=== PATIENT | female | born 1990 | race Caucasian/White ===

== ENCOUNTER 2020-09-17 12:49 | Emergency (ER) | payer OTHER, SELFPAY ==
--- NOTE | ~2020-09-17 | XR_ITS ---
EXAMINATION: XR CHEST CLINICAL INFORMATION: Cough, SOB COMPARISON: None TECHNIQUE: Frontal view of the chest was obtained. FINDINGS: No significant abnormality is noted involving the heart, lungs, mediastinum, bony thorax or soft tissues. XR/XR chest 1V IMPRESSION: Unremarkable unremarkable chest exam examination.
[2020-09-17 12:52] VITALS: BP 113/77; PULSE 112; RESP 24; TEMP 37; O2SAT 98; BMI 37.6
[2020-09-17 13:10] VITALS: BP 110/73; PULSE 107; RESP 17; TEMP 37.1; O2SAT 96
[2020-09-17] MEDS: 0.9 % Sodium Chloride 1,000 ML 999 ML IV (13:21)
[2020-09-17] MEDS: Magnesium Sulfate/H2O 2 GM/50 ML PIGGYBACK IV (13:22)
[2020-09-17] MEDS: methylPREDNISolone Sod Succ 125 MG/2 ML VIAL IVPUSH (13:22)
--- NOTE | 2020-09-17 13:24 | ED.ASTHMA ---
HPI - Asthma General Chief Complaint: Asthma <Linda Randle NP - Last Filed: 09/17/20 15:01> Stated Complaint: DIFF BREATHING ASTHMA <TORI Parsons Last Filed: 09/17/20 15:01> Time Seen by Provider: 09/17/20 13:07 <TORI Parsons Last Filed: 09/17/20 15:01> Source: patient <OTRI Parsons Last Filed: 09/17/20 15:01> Mode of arrival: ambulatory <TORI Parsons Last Filed: 09/17/20 15:01> Limitations: no limitations <TORI Parsons Last Filed: 09/17/20 15:01> History of Present Illness HPI Narrative: 30 yo female with past medical history of asthma here with cough, wheezing, shortness of breath x2 days. Patient uses Advair, albuterol and nebulizer machine as needed. Her asthma is triggered by allergies. She has had some sneezing and a clear runny nose. No fevers, chills or productive cough. No leg pain or swelling or chest pain. No OCP use. Fully vaccinated with [employer] J COVID vaccine 1 month ago. History of several hospitalizations with 1 ICU admit. No intubation history <Linda Randle NP - Last Filed: 09/17/20 15:01> Related Data Home Medications: Previous Rx's Medication Instructions Recorded albuterol sulfate 2.5 mg INHALATION Q4-6H PRN #15 ml 09/17/20 benzonatate [Tessalon Perles] 100 mg PO BID PRN #10 cap 09/17/20 prednisone 40 mg PO DAILY #8 tab 09/17/20 <TORI Parsons Last Filed: 09/17/20 15:01> Allergies/Adverse Reactions: Allergies Allergy/AdvReac Type Severity Reaction Status Date / Time No Known Allergies Allergy Verified 09/17/20 12:52 [No Known Allergies*] <TORI Parsons Last Filed: 09/17/20 15:01> Review of Systems Review of Systems: Yes all other systems are reviewed and are negative <TORI Parsons Last Filed: 09/17/20 15:01> Constitutional: Constitutional: Reports no additional constitutional complaints, Denies body ache(s), Denies chills, Denies fever(s), Denies headache(s) and Denies weakness <Linda Randle NP - Last Filed: 09/17/20 15:01> Eyes: Eyes: Reports no additional eye complaints and Denies change in vision <Linda Randle NP - Last Filed: 09/17/20 15:01> ENT: Reports system reviewed and no additional complaints, except as documented, Denies dizziness, Denies headache(s), Denies nasal congestion, Denies nasal discharge and Denies neck pain <Linda Randle NP - Last Filed: 09/17/20 15:01> Cardiovascular: Cardiovascular: Reports no additional cardiovascular complaints, Denies chest pain, Denies leg edema and Reports dyspnea <Linda Randle NP - Last Filed: 09/17/20 15:01> Respiratory: Respiratory: Reports no additional respiratory complaints, Reports cough and Reports dyspnea <Linda Randle NP - Last Filed: 09/17/20 15:01> Gastrointestinal: Gastrointestinal: Reports no additional gastrointestinal complaints, Denies abdominal pain, Denies diarrhea, Denies nausea and Denies vomiting <Linda Randle NP - Last Filed: 09/17/20 15:01> Genitourinary: Genitourinary: Reports no additional female genitourinary complaints and Denies urinary incontinence <Linda Randle NP - Last Filed: 09/17/20 15:01> Musculoskeletal: Musculoskeletal: Reports no additional musculoskeletal complaints, Denies back pain, Denies arthralgias, Denies joint swelling, Denies neck pain, Denies numbness and Denies tingling <Linda Randle NP - Last Filed: 09/17/20 15:01> Integumentary/Breasts: Skin/Breast: Reports system reviewed and no additional complaints, except as docu and Denies rash <Linda Randle NP - Last Filed: 09/17/20 15:01> Neurologic: Reports system reviewed and no additional complaints, except as documented, Denies Abnormal speech present, Denies dizziness, Denies headache(s), Denies numbness, Denies tingling and Denies weakness <Linda Randle NP - Last Filed: 09/17/20 15:01> [facility] Past Medical History Attestation statement: The following information was validated with the patient. <Linda Randle NP - Last Filed: 09/17/20 15:01> Source: old records reviewed and nursing notes reviewed <Linda Randle NP - Last Filed: 09/17/20 15:01> Medical History: Medical History Asthma Fibromyalgia Thyroid activity decreased <Linda Randle NP - Last Filed: 09/17/20 15:01> Social History Social History: Social History Alcohol intake: never Use of substances other than those prescribed or required for medical reasons: No Advance Directives: No Advance Directives Information Provided: No Patient : No <Linda Randle NP - Last Filed: 09/17/20 15:01> Physical Exam Vital Signs: Vital Signs: Last Vital Signs Temp 98.7 F 09/17/20 13:10 Pulse 97 09/17/20 14:21 Resp 15 09/17/20 14:21 BP 134/76 09/17/20 14:21 Pulse Ox 98 09/17/20 14:21 Body Mass Index 37.6 <Linda Randle NP - Last Filed: 09/17/20 15:01> Vital Signs: Last Vital Signs Temp 98.7 F 09/17/20 13:10 Pulse 97 09/17/20 14:21 Resp 15 09/17/20 14:21 BP 134/76 09/17/20 14:21 Pulse Ox 98 09/17/20 14:21 Body Mass Index 37.6 <Jeet Méndez MD - Last Filed: 10/10/20 00:06> Const: General: cooperative, healthy appearing, comfortable and no acute distress <Linda Randle NP - Last Filed: 09/17/20 15:01> Orientation/consciousness: patient oriented x3 <Linda Randle NP - Last Filed: 09/17/20 15:01> Limitations: no limitations <Linda Randle NP - Last Filed: 09/17/20 15:01> HENMT: Head: Yes normal to inspection <Linda Randle NP - Last Filed: 09/17/20 15:01> Ears: hearing grossly normal bilaterally <Linda Randle NP - Last Filed: 09/17/20 15:01> General nose exam: Normal external nose present <Linda Randle NP - Last Filed: 09/17/20 15:01> Face and sinus: Yes normal facial exam <Linda Randle NP - Last Filed: 09/17/20 15:01> Mouth: Normal oral and palatal mucosa present <Linda Randle NP - Last Filed: 09/17/20 15:01> Throat: Yes posterior oropharynx normal <Linda Randle NP - Last Filed: 09/17/20 15:01> Eyes: General: appearance normal, both eyes and all related structures <Linda Randle NP - Last Filed: 09/17/20 15:01> Pupils: Equal, round and reactive pupils present <Linda Randle NP - Last Filed: 09/17/20 15:01> Neck: Neck: Yes normal visual inspection <Linda Randle NP - Last Filed: 09/17/20 15:01> Chest: Chest palpation & inspection: normal inspection of the chest <Linda Randle NP - Last Filed: 09/17/20 15:01> Resp: Other: Mild tachypnea, mild accessory muscle use, sitting upright. Inspiratory and expiratory wheezing throughout. Speaking short phrases <Linda Randle NP - Last Filed: 09/17/20 15:01> Cardio: Rate: regular rate <Linda Randle NP - Last Filed: 09/17/20 15:01> Rhythm: regular rhythm <Linda Randle NP - Last Filed: 09/17/20 15:01> Peripheral pulses: Peripheral pulses 2+ throughout <Linda Randle NP - Last Filed: 09/17/20 15:01> GI: Inspection: Yes normal to inspection <Linda Randle NP - Last Filed: 09/17/20 15:01> Palpation (GI): Soft to palpation and nontender <Linda Randle NP - Last Filed: 09/17/20 15:01> Auscultation: normal bowel sounds <Linda Randle NP - Last Filed: 09/17/20 15:01> Back/Spine/Pelvis: Thoracic/Lumbar Spine: thoracic and lumbar spine normal to inspection <Linda Randle NP - Last Filed: 09/17/20 15:01> Skin: General skin exam: no rashes or lesions noted <Linda Randle NP - Last Filed: 09/17/20 15:01> Neuro: General: patient oriented x3, no focal motor deficits and normal sensation to monofilament <Linda Randle NP - Last Filed: 09/17/20 15:01> Cranial nerves: Yes Equal, round and reactive pupils present <Linda Randle NP - Last Filed: 09/17/20 15:01> Cognition (Neuro): normal cognition <Linda Randle NP - Last Filed: 09/17/20 15:01> Speech: No Abnormal speech present <Linda Randle NP - Last Filed: 09/17/20 15:01> Gait exam (Neuro): Normal gait present <Linda Randle NP - Last Filed: 09/17/20 15:01> Motor exam (neuro): 5/5 motor strength present throughout <Linda Randle NP - Last Filed: 09/17/20 15:01> Extrem: General: Yes normal to inspection, Yes no pedal edema and Yes no calf tenderness <Linda Randle NP - Last Filed: 09/17/20 15:01> Course Course Course Narrative: 30-year-old female with past medical history of asthma here with cough and shortness of breath with wheezing for 2 days. On arrival the patient has mild respiratory distress with inspiratory and expiratory wheezing. Tachypnea and tachycardia secondary to chronic lung disease. Will need labs, chest x-ray, DuoNeb, Solu-Medrol, magnesium and reassessment 1500-chest x-ray shows no acute abnormality. Labs unremarkable. 3 re-evaluations for respiratory effort. No speaking full sentences with clear lung sounds throughout and stable saturations. Likely asthma exacerbation. Plan for discharge home with follow-up with PCP. Reviewed worrisome signs and symptoms of when to return to the emergency department. Comfortable discharge home. <Linda Randle NP - Last Filed: 09/17/20 15:01> I have reviewed the chart <Jeet Méndez MD - Last Filed: 10/10/20 00:06> MDM - Asthma MDM Narrative Medical decision making narrative: viral syndroe <Linda Randle NP - Last Filed: 09/17/20 15:01> Differential Diagnosis Differential diagnosis: Likely Acute exacerbation and Pneumonia <Linda Randle NP - Last Filed: 09/17/20 15:01> Medical Records Attestation: I reviewed the patient's medical records. <Linda Randle NP - Last Filed: 09/17/20 15:01> Lab Data Attestation: I reviewed the patient's lab results. <Linda Randle NP - Last Filed: 09/17/20 15:01> Result diagrams: : 09/17/20 13:26 09/17/20 13:25 <Linda Randle NP - Last Filed: 09/17/20 15:01> Labs: Lab Results 09/17/20 09/17/20 09/17/20 Range/Units 13:25 13:26 13:27 WBC 6.0 (4.8-10.8) X10*3/uL RBC 5.12 (4.20-5.50) X10*6/uL Hgb 11.7 L (12.0-16.0) g/dl Hct 38.2 (37-47) % MCV 74.6 L (80-98) fL MCH 22.9 L (27.0-33.0) pg MCHC 30.6 L (31.0-35.0) g/dl RDW 17.0 H (11.0-16.0) % Plt Count 352 (160-400) X10*3/uL MPV 10.4 (9.4-12.3) fL Immature Gran % (Auto) 0.2 (0.0-0.4) % Neut % (Auto) 48.8 (45-73) % Lymph % (Auto) 30.0 (20-40) % Dubois % (Auto) 4.4 (2-11) % Eos % (Auto) 15.4 H (0-4) % Baso % (Auto) 1.2 (0-2) % Lymph # (Auto) 1.8 (1.2-4.9) X10*3/uL Dubois # (Auto) 0.3 (0.1-1.2) X10*3/uL Eos # (Auto) 0.9 H (0.0-0.4) X10*3/uL Baso # (Auto) 0.1 (0.0-0.2) X10*3/uL Abs Immat Gran (auto) 0.01 (0.00-0.03) X10*3/uL Absolute Neuts (auto) 2.9 (2.0-8.3) X10*3/uL Absolute Nucleated RBC 0.000 (0.0-0.012) X10*3/uL Nucleated RBC % (auto) 0.0 (0.0-0.2) /100WBC Hold Blue Top SEE NOTE Sodium 138 (135-145) mmol/L Potassium 4.1 (3.3-5.1) mmol/L Chloride 106 (96-108) mmol/L Carbon Dioxide 25 (22-29) mmol/L Anion Gap 11 L (12-20) BUN 18 H (9-16) mg/dL Creatinine 0.83 (0.5-1.4) mg/dL Estim Creat Clear Calc 107.4 Estimated GFR > 60 Random Glucose 99 (60-115) mg/dL Calcium 9.2 (8.4-10.2) mg/dL Magnesium 1.8 (1.6-2.6) mg/dL Total Bilirubin 0.4 (0.0-1.0) mg/dL Direct Bilirubin < 0.2 (0.0-0.5) mg/dL AST 27 (5-31) U/L ALT 23 (0-31) U/L Alkaline Phosphatase 86 (39-117) U/L Total Protein 7.5 (6.5-8.0) g/dL Albumin 4.2 (3.5-5.0) g/dL <Linda Randle NP - Last Filed: 09/17/20 15:01> Lab Results 09/17/20 09/17/20 09/17/20 Range/Units 13:25 13:26 13:27 WBC 6.0 (4.8-10.8) X10*3/uL RBC 5.12 (4.20-5.50) X10*6/uL Hgb 11.7 L (12.0-16.0) g/dl Hct 38.2 (37-47) % MCV 74.6 L (80-98) fL MCH 22.9 L (27.0-33.0) pg MCHC 30.6 L (31.0-35.0) g/dl RDW 17.0 H (11.0-16.0) % Plt Count 352 (160-400) X10*3/uL MPV 10.4 (9.4-12.3) fL Immature Gran % (Auto) 0.2 (0.0-0.4) % Neut % (Auto) 48.8 (45-73) % Lymph % (Auto) 30.0 (20-40) % Dubois % (Auto) 4.4 (2-11) % Eos % (Auto) 15.4 H (0-4) % Baso % (Auto) 1.2 (0-2) % Lymph # (Auto) 1.8 (1.2-4.9) X10*3/uL Dubois # (Auto) 0.3 (0.1-1.2) X10*3/uL Eos # (Auto) 0.9 H (0.0-0.4) X10*3/uL Baso # (Auto) 0.1 (0.0-0.2) X10*3/uL Abs Immat Gran (auto) 0.01 (0.00-0.03) X10*3/uL Absolute Neuts (auto) 2.9 (2.0-8.3) X10*3/uL Absolute Nucleated RBC 0.000 (0.0-0.012) X10*3/uL Nucleated RBC % (auto) 0.0 (0.0-0.2) /100WBC Hold Blue Top SEE NOTE Sodium 138 (135-145) mmol/L Potassium 4.1 (3.3-5.1) mmol/L Chloride 106 (96-108) mmol/L Carbon Dioxide 25 (22-29) mmol/L Anion Gap 11 L (12-20) BUN 18 H (9-16) mg/dL Creatinine 0.83 (0.5-1.4) mg/dL Estim Creat Clear Calc 107.4 Estimated GFR > 60 Random Glucose 99 (60-115) mg/dL Calcium 9.2 (8.4-10.2) mg/dL Magnesium 1.8 (1.6-2.6) mg/dL Total Bilirubin 0.4 (0.0-1.0) mg/dL Direct Bilirubin < 0.2 (0.0-0.5) mg/dL AST 27 (5-31) U/L ALT 23 (0-31) U/L Alkaline Phosphatase 86 (39-117) U/L Total Protein 7.5 (6.5-8.0) g/dL Albumin 4.2 (3.5-5.0) g/dL <Jeet Méndez MD - Last Filed: 10/10/20 00:06> Imaging Data Chest x-ray: Attestation: I personally reviewed and interpreted this imaging study as follows: <Linda Randle NP - Last Filed: 09/17/20 15:01> Radiologist's impression: [address] [id number] ReportSigned Patient: Candis ZayasisMR#: [id number]: 1990Acct:[id number]/Sex: 30 / FADM Date: 09/17/20Loc: [address]: Ordering Physician: LINDA RANDLE NP Date of Service: 09/17/20 Procedure(s): XR chest 1V Accession Number(s): [id number] cc: LINDA RANDLE NP~ EXAMINATION: XR CHEST CLINICAL INFORMATION: Cough, SOB COMPARISON: None TECHNIQUE: Frontal view of the chest was obtained. FINDINGS: No significant abnormality is noted involving the heart, lungs, mediastinum, bony thorax or soft tissues. XR/XR chest 1V IMPRESSION: Unremarkable unremarkable chest exam examination. <Linda Randle NP - Last Filed: 09/17/20 15:01> Critical Care Time Critical Care Time Critical Care Time: Yes <Linda Randle NP - Last Filed: 09/17/20 15:01> Total Critical Care Time: 30 <Linda Randle NP - Last Filed: 09/17/20 15:01> Attestation: Multiple re-evaluations for respiratory status. <Linda Randle NP - Last Filed: 09/17/20 15:01> Discharge Plan Discharge Clinical Impression: Asthma with acute exacerbation <Linda Randle NP - Last Filed: 09/17/20 15:01> Patient Disposition: Home, Self-Care <Linda Randle NP - Last Filed: 09/17/20 15:01> Instructions: Asthma (ED) <Linda Randle NP - Last Filed: 09/17/20 15:01> Additional Instructions: Increase fluids, rest Next dose of prednisone tomorrow Follow-up with PCP <Linda Randle NP - Last Filed: 09/17/20 15:01> Prescriptions: New prednisone 20 mg tablet 40 mg PO DAILY Qty: 8 RF: 0 albuterol sulfate 2.5 mg /3 mL (0.083 %) solution for nebulization 2.5 mg inhalation Q4-6H PRN (Reason: shortness of breath or wheezing) Qty: 15 RF: 0 benzonatate [Tessalon Perles] 100 mg capsule 100 mg PO BID PRN (Reason: cough) Qty: 10 RF: 0 <Linda Randle NP - Last Filed: 09/17/20 15:01> Referrals: Physician,Unknown [Primary Care Provider] - 2 days <Linda Randle NP - Last Filed: 09/17/20 15:01> Interventions: ED Discharge Assessment Last Done: 09/17/20 15:01 <Linda Randle NP - Last Filed: 09/17/20 15:01> Discharge Date/Time: 09/17/20 15:03 <Linda Randle NP - Last Filed: 09/17/20 15:01>
[2020-09-17] MEDS: Albuterol/Iprat 2.5/0.5MG 3 ML AMPUL.NEB INHALE (13:28)
[2020-09-17 13:29] VITALS: PULSE 89; O2SAT 97
[2020-09-17 13:31] LABS: MANUAL DIFF FLAG NO
[2020-09-17 13:33] LABS: Basophils Absolute Auto 0.1 X10*3/uL (0.0-0.2); Basophils Percent Auto 1.2 % (0-2); Eosinophils Absolute Auto 0.9 X10*3/uL (0.0-0.4); Eosinophils Percent Auto 15.4 % (0-4); Hematocrit 38.2 % (37-47); Hemoglobin 11.7 g/dl (12.0-16.0); Imm Gran Abs Auto 0.01 X10*3/uL (0.00-0.03); Imm Gran Pct Auto 0.2 % (0.0-0.4); Lymphocytes Absolute Auto 1.8 X10*3/uL (1.2-4.9); Mean Corpuscular HGB Conc 30.6 g/dl (31.0-35.0); Mean Corpuscular Hemoglobin 22.9 pg (27.0-33.0); Mean Corpuscular Volume 74.6 fL (80-98); Mean Platelet Volume 10.4 fL (9.4-12.3); Monocytes Absolute Auto 0.3 X10*3/uL (0.1-1.2); Monocytes Percent Auto 4.4 % (2-11); Neutrophils Absolute Auto 2.9 X10*3/uL (2.0-8.3); Neutrophils Percent Auto 48.8 % (45-73); Platelet Count 352 X10*3/uL (160-400); Red Blood Count 5.12 X10*6/uL (4.20-5.50)
[2020-09-17 13:58] LABS: Alanine Aminotransferase 23 U/L (0-31); Albumin Level 4.2 g/dL (3.5-5.0); Alkaline Phosphatase 86 U/L (39-117); Anion Gap 11 (12-20); Aspartate Amino Transferase 27 U/L (5-31); Bilirubin Direct < 0.2 mg/dL (0.0-0.5); Bilirubin Total 0.4 mg/dL (0.0-1.0); Blood Urea Nitrogen 18 mg/dL (9-16); Calcium 9.2 mg/dL (8.4-10.2); Carbon Dioxide 25 mmol/L (22-29); Chloride 106 mmol/L (96-108); Creatinine Clr Calc Pharmacy 107.4; Estimated Glomerular Filt Rate > 60; Glucose Random 99 mg/dL (60-115); Magnesium 1.8 mg/dL (1.6-2.6); Potassium 4.1 mmol/L (3.3-5.1); Sodium 138 mmol/L (135-145); Total Protein 7.5 g/dL (6.5-8.0)
[2020-09-17 14:21] VITALS: BP 134/76; PULSE 97; RESP 15; O2SAT 98
== END 2020-09-17 15:03 | disposition home or self-care (01) ==
PROVIDERS: Nurse Practitioner Family; Emergency Provider Emergency Medicine
DX: J45.41 Moderate persistent asthma with (acute) exacerbation (principal); Z79.899 Other long term (current) drug therapy
CPT/HCPCS: 36415; 71045; 80048; 80076; 83735; 85025; 94640; 96361; 96365; 96366; 96374; 99284; 99291; J2930; J3475

== ENCOUNTER 2021-05-04 12:20 | Emergency (ER) | payer OTHER, SELFPAY ==
[2021-05-04 13:04] LABS: COVID-19 Test Negative (Negative)
== END 2021-05-04 17:35 | disposition left against medical advice (07) ==
PROVIDERS: Physician Assistant Medical; Emergency Provider Emergency Medicine
DX: J00 Acute nasopharyngitis [common cold] (principal); Z20.822 Contact with and (suspected) exposure to COVID-19
CPT/HCPCS: 36415; 87635; 99283